=== PATIENT | male | born 1980 | race Caucasian/White ===

== ENCOUNTER 2021-07-12 14:50 | Emergency (ER) | payer OTHER ==
[~2021-07-12] VITALS: Ht 185.4 cm; Wt 97.5 kg
[2021-07-12] MEDS ORDERED: LORAZEPAM 0.50.5 MG PO (15:17)
[2021-07-12] MEDS ORDERED: PAXIL20 MG PO (15:18)
[2021-07-12 16:09] VITALS: BP 138/71
== END 2021-07-12 16:10 | disposition home or self-care (01) ==
LOC: M.ERS 14:50
DX: S61.200A Unspecified open wound of right index finger without damage to nail, initial encounter (principal); Z79.899 Other long term (current) drug therapy; W26.8XXA Contact with other sharp object(s), not elsewhere classified, initial encounter; Y93.89 Activity, other specified; Y92.89 Other specified places as the place of occurrence of the external cause; Y99.0 Civilian activity done for income or pay